=== PATIENT | male | born 1930 | race Caucasian/White ===

== ENCOUNTER → 2017-11-30 | Day surgery (SDC) | payer MEDICARE, OTHER ==
[2017-11-29 10:44] LABS: BASOPHILS % 0.4 % (0.0-1.0); EOSINOPHILS # (AUTO) 0.1 (0.0-0.4); EOSINOPHILS % 1.1 % (0.0-6.0); HEMATOCRIT 31.1 % (38.2-49.6); LYMPHOCYTES # (AUTO) 2.5 (1.0-3.2); LYMPHOCYTES % 23.1 % (18.0-39.1); MEAN CORPUSCULAR HEMOGLOBIN 22.6 pg (28-32); MEAN CORPUSCULAR HGB CONC 28.9 g/dL (31-35); MEAN CORPUSCULAR VOLUME 77.9 fL (81-99); MONOCYTES % 9.5 % (4.4-11.3); NEUTROPHILS # (AUTO) 7.1 (2.1-6.9); NEUTROPHILS % 65.4 % (38.7-80.0); PLATELET COUNT 224 x10e3/uL (140-360); RED BLOOD COUNT 3.99 x10e6/uL (4.3-5.7); RED CELL DISTRIBUTION WIDTH 24.7 % (11.7-14.4)
[2017-11-29 10:59] LABS: ANION GAP 15.7 mmol/L (8-16); CALCIUM 9.9 mg/dL (8.4-10.2); CREATININE, SERUM 1.22 mg/dL (0.72-1.25); POTASSIUM 4.7 mmol/L (3.5-5.1)
--- NOTE | 2017-11-29 11:27 | Diagnostic Imaging Report ---
PROCEDURE: X-RAY CHEST, TWO VIEWS COMPARISON: 11/20/2016. INDICATIONS: PRE OPERATIVE CHEST X-RAY FOR FOOT SURGERY FINDINGS: Left subclavian implantable cardiac device body and leads are unchanged in position. Postsurgical changes in the mediastinum. Upper abdominal aortic stent or stent graft is again partially visualized. Lungs remain grossly clear. Heterogeneous pleural calcifications are again noted bilaterally with blunting of the left lateral sulcus, likely chronic pleural thickening. No new airspace consolidation. No acute osseous abnormality. CONCLUSION: No acute cardiopulmonary abnormality. Stable chest relative to 11/20/2016. Dictated by: Jourdan Alcala M.D. on 11/29/2017 at 11:36 Electronically approved by: Jourdan Alcala M.D. on 11/29/2017 at 11:36
[~2017-11-30] MED LIST: ASA81 MG PO; ASPIRIN81 MG PO; BACITRACIN 50,000 UNIT VIAL ONE; BUPIVACAINE HCL 0.5% INJ 30 ML VIAL INJ ONE; CLINDAMYCIN PHOS 900MG/ D5W 50 50 ML IV ONE; DEXAMETHASONE SOD PHOS 10 MG/1 ML VIAL ONE; FLOMAX0.4 MG PO; FUROSEMIDE40 MG PO; HYDROCHLOROTHIA25 MG PO; LEVOTHYROXINE50 MCG PO; LOVASTATIN40 MG PO; METOPROLOL SUCC50 MG PO; METOPROLOL TART50 MG PO; MINOCYCLINE HCL50 MG PO; OMEPRAZOLE40 MG PO; PERSERVISION PO; TEMAZEPAM15 MG PO; WARFARIN SODIUM3 MG PO; XARELTO20 MG; XARELTO20 MG PO; Z.0.FLOMAX0.4 MG PO; Z.0.MEVACOR40 MG PO; Z.0.OMEPRAZOLE20 MG PO; Z.0.PREDNISONE20 MG PO; Z.0.RESTORIL30 MG PO; Z.1.VERAPAMIL ER240 PO; [UNRECOGNIZED DRUG - OTHER] PO; tylenol arthritis PO
--- NOTE | 2017-11-30 08:23 | Operative Report ---
DATE OF PROCEDURE: November 30, 2017 PREOPERATIVE DIAGNOSIS: Right hallux gangrene. POSTOP DIAGNOSIS: Right hallux gangrene. PLANNED PROCEDURE: Right hallux amputation. SKY DIVER: None. ANESTHESIA: General with a postoperative block consisting of 10 mL of 0.5% Marcaine plain. HEMOSTASIS: Pneumatic ankle tourniquet set at 250 mmHg for a total time of approximately 15 minutes. MATERIALS: 3-0 nylon. ESTIMATED BLOOD LOSS: Less than 10 mL. PATHOLOGY: Right hallux. DETAILS OF PROCEDURE: The patient was seen in the preoperative waiting room where the correct procedure and site was identified. The patient was brought to the operating room and placed on the operating table in the supine position. General anesthesia was initiated at this time. A well-padded pneumatic tourniquet was placed about the patient's right ankle. The right foot and ankle was then scrubbed, prepped and draped in the usual aseptic manner. The right foot, ankle and leg was exsanguinated with gravity, and the pneumatic ankle tourniquet was inflated to 250 mmHg for a total time of approximately 15 minutes. Attention was directed to the medial aspect of the patient's right hallux where a large necrotic ulcer was noted, which is deep and probes to bone. The decision was made at this time to proceed with a right hallux amputation. Utilizing a #15 blade, 2 large converging semi-elliptical incisions were made at the level of the 1st metatarsophalangeal joint in a fishmouth fashion. They were carried deep down to the level of bone. The bone was noted to be soft and necrotic at the level of the interphalangeal joint. At this point, utilizing a towel clamp, the distal aspect of the digit was grasped, and it was disarticulated at the level of the 1st metatarsophalangeal joint where it was sharply excised. There was noted to be mild bleeding during the procedure. At this point, the remainder of the wound was debrided of all necrotic and devitalized tissue. The wound edges were prepped for closure by removing all dog ears. At this time, utilizing electrocautery all bleeders were cauterized. The wound was then flushed copious amounts of sterile saline mixed with Bacitracin. The wound was reapproximated utilizing simple interrupted sutures with 3-0 nylon. The incision site was dressed with Adaptic, Betadine-soaked dry 4 x 4's, ABD pads, Kerlix, and Teddy wrap. Patient tolerated the procedure and anesthesia well. Patient was transferred to the postoperative recovery unit with vital signs stable and vascular status intact. The patient was monitored there for a short period of time before being sent home with the following written and oral instructions: 1. Keep the dressing clean, dry and intact. 2. The patient is to remain nonweightbearing to the right lower extremity and to avoid any ambulation until being seen in the office. 3. Patient was given the office number and instructed to contact us if any problems should arise. Job#: [id number] BELINDA
== END | disposition home or self-care (01) ==
LOC: OR 04:38
PROVIDERS: ATTEND Podiatrist Foot & Ankle Surgery
DX: I96 Gangrene, not elsewhere classified (principal); M86.171 Other acute osteomyelitis, right ankle and foot; M19.071 Primary osteoarthritis, right ankle and foot; I73.9 Peripheral vascular disease, unspecified; I25.700 Atherosclerosis of coronary artery bypass graft(s), unspecified, with unstable angina pectoris; I10 Essential (primary) hypertension; I49.1 Atrial premature depolarization; E11.9 Type 2 diabetes mellitus without complications; K44.9 Diaphragmatic hernia without obstruction or gangrene; N20.0 Calculus of kidney; F32.9 Major depressive disorder, single episode, unspecified; Z01.810 Encounter for preprocedural cardiovascular examination; Z01.812 Encounter for preprocedural laboratory examination; Z01.818 Encounter for other preprocedural examination; Z79.82 Long term (current) use of aspirin; Z79.02 Long term (current) use of antithrombotics/antiplatelets; Z79.01 Long term (current) use of anticoagulants; Z95.0 Presence of cardiac pacemaker; Z86.718 Personal history of other venous thrombosis and embolism; Z95.1 Presence of aortocoronary bypass graft
CPT/HCPCS: 36415; 71046; 80048; 85025; 88305; 88311; 93005; J1100